=== PATIENT | male | born 1990 | race African-American/Black ===

== ENCOUNTER 2018-07-25 10:38 | Emergency (ER) | payer SELFPAY ==
[2018-07-25] MEDS ORDERED: Dexamethasone 20 MG/5 ML VIAL ONE (10:59)
[2018-07-25] MEDS ORDERED: Acetaminophen 500 MG TAB ONE ×2 (10:59→11:00)
[2018-07-25] MEDS ORDERED: Ibuprofen 800 MG TAB ONE (10:59)
== END 2018-07-25 11:11 | disposition home or self-care (01) ==
LOC: SCSER 10:38
DX: J01.90 Acute sinusitis, unspecified (principal)
CPT/HCPCS: 99283; J1100